=== PATIENT | male | born 1970 | race Two or more races ===

== ENCOUNTER → 2018-01-17 | Outpatient (CLI) | payer OTHER ==
[2018-01-17 08:08] LABS: Basophils # (auto) 0.1 uL; Basophils % (auto) 0.5 % (0.0-2.0); Eosinophils # (auto) 0.2 uL; Eosinophils % (auto) 2.2 % (0.0-7.0); Hematocrit 48.3 % (41.0-53.0); Hemoglobin 16.5 g/dL (13.5-17.5); Lymphocytes # (auto) 2.7 uL; Lymphocytes % (auto) 26.2 % (10.0-50.0); Mean Corpuscular Hemoglobin 30.5 pg (28.0-32.0); Mean Corpuscular Hgb Conc. 34.1 g/dL (32.0-36.0); Mean Corpuscular Volume 89.6 fL (80.0-100.0); Monocytes # (auto) 0.8 uL; Monocytes % (auto) 7.7 % (0.0-12.0); Neutrophils # (auto) 6.6 uL; Neutrophils % (auto) 63.4 % (37.0-80.0); Nucleated Red Blood Cells % 0.1 %; Platelet Count (auto) 214 10^3/uL (140-450); Red Cell Distribution Width 14.3 % (11.8-14.3); White Blood Cell 10.4 10^3/uL (4.4-10.8)
[2018-01-17 08:18] LABS: Urine Bacteria FEW /hpf (None Seen); Urine Blood 2+ /uL (Negative); Urine Mucus FEW (None Seen); Urine Specific Gravity 1.027 (1.001-1.035); Urine WBC 5 /hpf (0 - 3)
[2018-01-17 08:19] LABS: INR 0.98 (0.9-1.15); Partial Thromboplastin Time 31.4 sec (23.78-33.04); Prothrombin Time 10.5 sec (9.27-12.13)
[2018-01-17 08:43] LABS: Albumin 3.8 g/dL (3.4-5.0); BUN/Creatinine Ratio 16.2; Bilirubin, Total 0.3 mg/dL (0.2-1.0); Calcium 9.2 mg/dL (8.5-10.1); Potassium 4.6 mmol/L (3.5-5.1); Total Protein 7.3 g/dL (6.4-8.2)
== END | disposition home or self-care (01) ==
LOC: LAB 07:29
PROVIDERS: ATTEND Nurse Practitioner
DX: E78.5 Hyperlipidemia, unspecified (principal)
CPT/HCPCS: 36415; 80053; 80061; 81001; 82306; 83036; 84443; 85025; 85610; 85730

== ENCOUNTER → 2018-04-03 | Day surgery (SDC) | payer OTHER ==
[2018-04-01 14:08] LABS: Basophils # (auto) 0 uL; Basophils % (auto) 0.4 % (0.0-2.0); Eosinophils # (auto) 0.1 uL; Eosinophils % (auto) 0.5 % (0.0-7.0); Hemoglobin 16.1 g/dL (13.5-17.5); Lymphocytes # (auto) 2.4 uL; Lymphocytes % (auto) 17.8 % (10.0-50.0); Mean Corpuscular Hemoglobin 30.2 pg (28.0-32.0); Mean Corpuscular Hgb Conc. 33.6 g/dL (32.0-36.0); Monocytes # (auto) 0.7 uL; Monocytes % (auto) 5.2 % (0.0-12.0); Neutrophils # (auto) 10.3 uL; Neutrophils % (auto) 76.1 % (37.0-80.0); Nucleated Red Blood Cells % 0.1 %; Platelet Count (auto) 227 10^3/uL (140-450); Red Blood Cells 5.33 10^6/uL (4.5-5.90); Red Cell Distribution Width 13.9 % (11.8-14.3); White Blood Cell 13.6 10^3/uL (4.4-10.8)
[2018-04-01 14:15] LABS: Prothrombin Time 10.7 sec (9.27-12.13)
[2018-04-01 14:29] LABS: BUN/Creatinine Ratio 9.3; Bilirubin, Total 0.4 mg/dL (0.2-1.0); Total Protein 7.7 g/dL (6.4-8.2)
[2018-04-01 15:25] LABS: Urine Bacteria NONE SEEN /hpf (None Seen); Urine Blood TRACE /uL (Negative); Urine Specific Gravity 1.002 (1.001-1.035); Urine WBC <1 /hpf (0 - 3)
[~2018-04-03] VITALS: Ht 175.3 cm; Wt 73.9 kg
[~2018-04-03] MED LIST: GLYCOPYRROLATE 0.2 MG/ML 1ML VIAL IV ONE; LEVOFLOXACIN 500MG 100 ML IV ONE; LIDOCAINE 1% HCL (LOCAL ANESTH.) INJ 20ML MDV ONE; MIDAZOLAM HCL 1MG/1ML-2 ML VIAL ONE; MORPHINE SULFATE 4 MG/ML SYR/VIAL IV ONE; NEOSTIGMINE 1 MG/ML INJ (10mg/10ML VIAL) IV ONE; ONDANSETRON HCL 4 MG/2 ML VIAL IV ONE; PROPOFOL 10 MG/ML 20 ML IV ONE; ROCURONIUM 10MG/ML 10ML VIAL IV ONE; ePHEDrine SULFATE 50 MG/ML AMP IV PRN; fentaNYL CITRATE 100 MCG/2 ML VL ONE; hydrALAZINE HCL 20 MG/ML VL IV PRN
[2018-04-03 14:43] VITALS: BP 123/71
== END | disposition home or self-care (01) ==
LOC: SUR 10:06
PROVIDERS: ATTEND Surgery
DX: D17.1 Benign lipomatous neoplasm of skin and subcutaneous tissue of trunk (principal); Z88.0 Allergy status to penicillin; Z98.890 Other specified postprocedural states
CPT/HCPCS: 21555; 36415; 80053; 81001; 85025; 85610; 85730; 88305; J1956; J2001; J2250; J2704; J3010

== ENCOUNTER 2018-07-25 10:57 | Emergency (ER) | payer OTHER ==
[~2018-07-25] VITALS: Ht 175.3 cm; Wt 74.8 kg
[2018-07-25 11:03] VITALS: BP 135/84
== END 2018-07-25 12:50 | disposition home or self-care (01) ==
LOC: ER 11:02
DX: F41.9 Anxiety disorder, unspecified (principal); R06.02 Shortness of breath; Z53.21 Procedure and treatment not carried out due to patient leaving prior to being seen by health care provider

== ENCOUNTER → 2019-01-31 | Outpatient (CLI) | payer OTHER ==
[2019-01-31 07:46] LABS: Urine Bacteria NONE SEEN /hpf (None Seen); Urine Blood TRACE /uL (Negative); Urine Specific Gravity 1.012 (1.001-1.035); Urine WBC 1 /hpf (0 - 3)
[2019-01-31 07:47] LABS: Basophils # (auto) 0.1 uL; Basophils % (auto) 0.5 % (0.0-2.0); Eosinophils # (auto) 0.3 uL; Hematocrit 47.3 % (41.0-53.0); Hemoglobin 15.8 g/dL (13.5-17.5); Lymphocytes # (auto) 2.8 uL; Lymphocytes % (auto) 26.8 % (10.0-50.0); Mean Corpuscular Hemoglobin 29.9 pg (28.0-32.0); Mean Corpuscular Hgb Conc. 33.4 g/dL (32.0-36.0); Mean Corpuscular Volume 89.6 fL (80.0-100.0); Monocytes # (auto) 0.7 uL; Monocytes % (auto) 7.1 % (0.0-12.0); Neutrophils # (auto) 6.4 uL; Neutrophils % (auto) 62.6 % (37.0-80.0); Nucleated Red Blood Cells % 0.1 %; Platelet Count (auto) 202 10^3/uL (140-450); Red Blood Cells 5.28 10^6/uL (4.5-5.90); Red Cell Distribution Width 14.3 % (11.8-14.3); White Blood Cell 10.3 10^3/uL (4.4-10.8)
[2019-01-31 08:13] LABS: Albumin 3.5 g/dL (3.4-5.0); Calcium 8.3 mg/dL (8.5-10.1); Potassium 4.1 mmol/L (3.5-5.1)
[2019-01-31 08:17] LABS: Bilirubin, Total 0.2 mg/dL (0.2-1.0); Total Protein 6.8 g/dL (6.4-8.2)
== END | disposition home or self-care (01) ==
LOC: LAB 07:03
PROVIDERS: ATTEND Nurse Practitioner
DX: E78.5 Hyperlipidemia, unspecified (principal)
CPT/HCPCS: 36415; 80053; 80061; 81001; 84443; 85025

== ENCOUNTER 2020-07-23 11:28 | Day surgery (SDC) | payer OTHER ==
[2020-07-21 14:07] LABS: Basophils # (auto) 0.1 10 ^3/uL (0-0.2); Basophils % (auto) 0.5 % (0.0-2.0); Eosinophils # (auto) 0.1 10 ^3/uL (0-0.8); Hematocrit 44.4 % (41.0-53.0); Hemoglobin 15.2 g/dL (13.5-17.5); Lymphocytes # (auto) 3.2 10 ^3/uL (0.4-5.4); Lymphocytes % (auto) 23.7 % (10.0-50.0); Mean Corpuscular Hemoglobin 31.2 pg (28.0-32.0); Mean Corpuscular Hgb Conc. 34.3 g/dL (32.0-36.0); Mean Corpuscular Volume 90.8 fL (80.0-100.0); Monocytes # (auto) 0.8 10 ^3/uL (0-1.3); Monocytes % (auto) 5.9 % (0.0-12.0); Neutrophils # (auto) 9.3 10 ^3/uL (1.6-8.6); Neutrophils % (auto) 68.9 % (37.0-80.0); Red Blood Cells 4.89 10^6/uL (4.5-5.90); Red Cell Distribution Width 13.8 % (11.8-14.3); White Blood Cell 13.4 10^3/uL (4.4-10.8)
[2020-07-21 14:35] LABS: INR 1.03 (0.9-1.15); Partial Thromboplastin Time 32.9 sec (23.0-31.2)
[~2020-07-23] VITALS: Ht 175.3 cm; Wt 74.8 kg
[~2020-07-23 11:28] MED LIST changes: +ALPR0.5T PO; +BUSP10TA31 PO; +CITA20TA9 PO; -GLYCOPYRROLATE 0.2 MG/ML 1ML VIAL IV ONE; -LEVOFLOXACIN 500MG 100 ML IV ONE; -LIDOCAINE 1% HCL (LOCAL ANESTH.) INJ 20ML MDV ONE; -MIDAZOLAM HCL 1MG/1ML-2 ML VIAL ONE; -MORPHINE SULFATE 4 MG/ML SYR/VIAL IV ONE; -NEOSTIGMINE 1 MG/ML INJ (10mg/10ML VIAL) IV ONE; -ONDANSETRON HCL 4 MG/2 ML VIAL IV ONE; -PROPOFOL 10 MG/ML 20 ML IV ONE; -ROCURONIUM 10MG/ML 10ML VIAL IV ONE; -ePHEDrine SULFATE 50 MG/ML AMP IV PRN; -fentaNYL CITRATE 100 MCG/2 ML VL ONE; -hydrALAZINE HCL 20 MG/ML VL IV PRN
[2020-07-23] MEDS ORDERED: fentaNYL CITRATE 100 MCG/2 ML VL ONE (12:08)
[2020-07-23] MEDS ORDERED: diphenhdrAMINE HCL 50 MG/1 ML VL ONE (12:08)
[2020-07-23] MEDS ORDERED: MIDAZOLAM HCL 5 MG/ML-1ML VIAL ONE (12:08)
[2020-07-23] MEDS ORDERED: diphenhdrAMINE HCL 50 MG/1 ML VL IV ONE ×2 (13:42→13:45)
[2020-07-23] MEDS ORDERED: MIDAZOLAM HCL 5 MG/ML-1ML VIAL IV ONE ×2 (13:42→13:45)
[2020-07-23] MEDS ORDERED: fentaNYL CITRATE 100 MCG/2 ML VL IV ONE ×2 (13:42→13:45)
[2020-07-23 14:15] VITALS: BP 103/59
== END 2020-07-23 14:50 | disposition home or self-care (01) ==
LOC: GI 11:28
PROVIDERS: ATTEND Internal Medicine Gastroenterology
DX: R10.32 Left lower quadrant pain (principal); K63.5 Polyp of colon; K64.8 Other hemorrhoids; Z20.822 Contact with and (suspected) exposure to COVID-19; Z88.0 Allergy status to penicillin; Z98.890 Other specified postprocedural states; Z79.899 Other long term (current) drug therapy; Z90.49 Acquired absence of other specified parts of digestive tract
CPT/HCPCS: 36415; 45385; 85025; 85610; 85730; J1200; J2250; J3010; J7030; U0003; 99152

== ENCOUNTER → 2023-12-28 | Outpatient (CLI) | payer OTHER ==
[2023-12-28 07:28] LABS: Urine Bacteria None Seen /hpf (None Seen)
[2023-12-28 07:31] LABS: Basophils # (auto) 0.1 10 ^3/uL (0-0.2); Basophils % (auto) 0.8 % (0.0-2.0); Eosinophils # (auto) 0.2 10 ^3/uL (0-0.8); Eosinophils % (auto) 1.5 % (0.0-7.0); Hematocrit 44.5 % (41.0-53.0); Hemoglobin 15.1 g/dL (13.5-17.5); Lymphocytes # (auto) 3.3 10 ^3/uL (0.4-5.4); Lymphocytes % (auto) 22.6 % (10.0-50.0); Mean Corpuscular Hemoglobin 30.4 pg (28.0-32.0); Mean Corpuscular Hgb Conc. 33.9 g/dL (32.0-36.0); Mean Corpuscular Volume 89.7 fL (80.0-100.0); Monocytes # (auto) 1.1 10 ^3/uL (0-1.3); Monocytes % (auto) 7.8 % (0.0-12.0); Neutrophils # (auto) 9.8 10 ^3/uL (1.6-8.6); Neutrophils % (auto) 67.3 % (37.0-80.0); Nucleated Red Blood Cells % 0.1 %; Red Blood Cells 4.97 10^6/uL (4.5-5.90); White Blood Cell 14.6 10^3/uL (4.4-10.8)
[2023-12-28 07:51] LABS: Urine Blood 2+ /uL (Negative); Urine Clarity Clear (Clear); Urine Color Yellow (Yellow); Urine Mucus FEW (None Seen); Urine Protein, UAD TRACE (Negative); Urine Specific Gravity 1.032 (1.001-1.035); Urine Urobilinogen 2 mg/dL (Negative); Urine WBC 2 /hpf (0 - 3)
[2023-12-28 08:28] LABS: Chloride 109 mmol/L (98-107); Potassium 3.8 mmol/L (3.5-5.1); Sodium 140 mmol/L (136-145)
[2023-12-28 08:34] LABS: Blood Urea Nitrogen 14 mg/dL (9-23); Triglycerides 109 mg/dL (< 150)
[2023-12-28 09:24] LABS: Anion Gap 6 (5-15); Carbon Dioxide 25 mmol/L (20-30)
[2023-12-28 09:25] LABS: Calcium 9.1 mg/dL (8.7-10.4)
[2023-12-28 09:29] LABS: BUN/Creatinine Ratio 12.5 (10.0-20.0); Glucose 89 mg/dL (74-106)
[2023-12-28 09:30] LABS: Alkaline Phosphatase 63 U/L (46-116); LDL Cholesterol 115 mg/dL (< 100)
[2023-12-28 09:31] LABS: Alanine Aminotransferase 12 U/L (7-40); Albumin 3.9 g/dL (3.2-4.8); Aspartate Aminotransferase 11 U/L (13-40)
[2023-12-28 09:32] LABS: Bilirubin, Total 0.5 mg/dL (0.2-1.0); Cholesterol 165 mg/dL (< 200); HDL Cholesterol 44 mg/dL (40-59); Total Protein 6.2 g/dL (5.7-8.2)
== END | disposition home or self-care (01) ==
LOC: LAB 07:13
PROVIDERS: ATTEND Nurse Practitioner
DX: I10 Essential (primary) hypertension (principal); E78.5 Hyperlipidemia, unspecified
CPT/HCPCS: 36415; 80053; 80061; 81001; 83036; 84443; 85025

== ENCOUNTER → 2023-12-28 | Outpatient (CLI) | payer OTHER | END | disposition home or self-care (01) | LOC: LAB 12:11 | PROVIDERS: ATTEND Family Medicine | DX: D48.5 Neoplasm of uncertain behavior of skin (principal) ==

== ENCOUNTER 2024-03-12 07:57 | Day surgery (SDC) | payer OTHER ==
[2024-03-07 15:02] LABS: Urine Bacteria None Seen /hpf (None Seen)
[2024-03-07 15:06] LABS: Urine Blood 1+ /uL (Negative); Urine Clarity Clear (Clear); Urine Color Light-Yellow (Yellow); Urine Protein, UAD Negative (Negative); Urine Specific Gravity 1.006 (1.001-1.035); Urine Urobilinogen Normal (Negative); Urine WBC 1 /hpf (0 - 3); Urine pH 5.5 (5.0-9.0)
[2024-03-07 15:18] LABS: Basophils # (auto) 0.1 10 ^3/uL (0-0.2); Basophils % (auto) 0.5 % (0.0-2.0); Eosinophils # (auto) 0.1 10 ^3/uL (0-0.8); Eosinophils % (auto) 0.8 % (0.0-7.0); Hematocrit 47.3 % (41.0-53.0); Hemoglobin 16.4 g/dL (13.5-17.5); Lymphocytes # (auto) 3.3 10 ^3/uL (0.4-5.4); Lymphocytes % (auto) 26.9 % (10.0-50.0); Mean Corpuscular Hemoglobin 30.7 pg (28.0-32.0); Mean Corpuscular Hgb Conc. 34.6 g/dL (32.0-36.0); Mean Corpuscular Volume 88.7 fL (80.0-100.0); Monocytes % (auto) 7.8 % (0.0-12.0); Neutrophils # (auto) 7.9 10 ^3/uL (1.6-8.6); Nucleated Red Blood Cells % 0.1 %; Platelet Count (auto) 238 10^3/uL (140-450); Red Blood Cells 5.34 10^6/uL (4.5-5.90); Red Cell Distribution Width 14.1 % (11.8-14.3); White Blood Cell 12.3 10^3/uL (4.4-10.8)
[2024-03-07 15:27] LABS: INR 1.13 (0.9-1.15); Partial Thromboplastin Time 34.4 SEC (24.5-34.5); Prothrombin Time 11.9 sec (9.3-11.8)
[2024-03-07 15:31] LABS: Alanine Aminotransferase 14 U/L (7-40); Albumin 4.6 g/dL (3.2-4.8); Alkaline Phosphatase 83 U/L (46-116); Anion Gap 7 (5-15); Aspartate Aminotransferase 18 U/L (13-40); BUN/Creatinine Ratio 9.6 (10.0-20.0); Blood Urea Nitrogen 12 mg/dL (9-23); Calcium 9.9 mg/dL (8.7-10.4); Carbon Dioxide 24 mmol/L (20-31); Chloride 105 mmol/L (98-107); Glucose 87 mg/dL (74-106); Potassium 4.1 mmol/L (3.5-5.1); Sodium 136 mmol/L (136-145)
[2024-03-07 15:32] LABS: Bilirubin, Total 0.7 mg/dL (0.2-1.0); Total Protein 7.3 g/dL (5.7-8.2)
[~2024-03-12] VITALS: Ht 175.3 cm; Wt 74.8 kg
[~2024-03-12 07:57] MED LIST changes: -BUSP10TA31 PO
[2024-03-12] MEDS ORDERED: levoFLOXacin 500MG 100 ML IV ONE (10:59)
[2024-03-12] MEDS ORDERED: LIDOCAINE 2% (LOCAL ANESTH.) PF 5ml SDV ONE (11:13)
[2024-03-12] MEDS ORDERED: ONDANSETRON HCL 4 MG/2 ML VIAL ONE (11:13)
[2024-03-12] MEDS ORDERED: GLYCOPYRROLATE 0.2 MG/ML 1ML VIAL ONE (11:13)
[2024-03-12] MEDS ORDERED: DexAMETHasone SOD PHOS 10MG/1ML VIAL INJ ONE (11:13)
[2024-03-12] MEDS ORDERED: PROPOFOL 10 MG/ML 20 ML IV ONE ×4 (11:13→12:22)
[2024-03-12] MEDS ORDERED: KETOROLAC TROMETH 30 MG/ML 1ML VIAL ONE (11:13)
[2024-03-12] MEDS ORDERED: KETAMINE 50mg/ML 1ml syringe ONE (11:14)
[2024-03-12] MEDS: BUPIVACAINE 0.25% INJ 50ML VIAL ONE (11:37)
[2024-03-12 12:30] VITALS: PULSE 74; RESP 14; TEMP 98.3; O2SAT 98
[2024-03-12] MEDS ORDERED: NALOXONE HCL 0.4 MG/ML VIAL IV PRN (12:45)
[2024-03-12] MEDS ORDERED: HYDROmorphone HCL 2 MG/ML VL/or syr IV PRN (12:45)
[2024-03-12] MEDS ORDERED: FLUMAZENIL 0.1 MG/ML INJ 10ML MDV IV PRN (12:45)
[2024-03-12] MEDS ORDERED: hydrALAZINE HCL 20 MG/ML VL IV PRN (12:45)
[2024-03-12] MEDS ORDERED: ePHEDrine SULFATE 50 MG/ML AMP IV PRN (12:45)
[2024-03-12] MEDS ORDERED: ONDANSETRON HCL 4 MG/2 ML VIAL IV PRN (12:45)
[2024-03-12] MEDS: fentaNYL CITRATE 100 MCG/2 ML VL IV PRN (12:57)
[2024-03-12] MEDS ORDERED: fentaNYL CITRATE 100 MCG/2 ML VL ONE (12:59)
[2024-03-12] MEDS: oxyCODONE HCL 5MG TAB PO PRN (13:37)
[2024-03-12 13:45] VITALS: BP 118/61; PULSE 58; RESP 18; O2SAT 99
--- NOTE | 2024-03-12 15:06 | DVHOP ---
DATE OF SURGERY: 03/12/2024 PREOPERATIVE DIAGNOSIS: Melanoma, right medial malleolus skin. POSTOPERATIVE DIAGNOSIS: Melanoma, right medial malleolus skin. SURGEON: Helder Snider MD PERSONAL ATTENDANT: None. ANESTHESIA: Local with IV sedation. ANESTHESIOLOGIST: Dr. Reji Craft. PROCEDURE: Wide excision and sentinel lymph node biopsy, right groin. DESCRIPTION OF PROCEDURE: The patient was brought to nuclear medicine at 8 o'clock this morning injected with radionucleide and brought to the operating room after several hours. His leg and groin were prepped and draped and proposed skin incisions infiltrated with 0.25% Marcaine with epinephrine. Subsequently, an incision around the preexisting scar on the medial malleolus skin was accomplished approximately 1 cm margins around the scar were accomplished. Hemostasis was obtained with electrocautery and digital pressure following which, the wound was irrigated, irrigant was aspirated and closure accomplished utilizing Prolene mattress sutures through and through full thickness of the skin. The specimen skin was submitted for histopathologic examination. It was marked with a long suture at the edge of the specimen facing outward and the short suture facing cephalad superiorly. Subsequently, the Neoprobe was used to detect radioactivity. There was no detectable signal from the popliteal area. There were no palpable masses in the popliteal area and several attempts at detecting radioactivity in the popliteal fossa did not reveal any radioactive signal in the popliteal area. In the groin, there was radioactivity detected. Incision was made over the area of the radioactivity and lymph nodes are in the area of maximum radioactive counts. Two lymph nodes were removed with blood vessels were controlled with Hemoclips. The wound was irrigated. Hemostasis was accomplished. The lymph nodes were submitted separately from the skin for histopathologic examination. The wound was then approximated using 2-0 Monocryl suture, Dermabond glue, and Steri-Strips. The patient remained stable throughout the procedure, left the operating room following an accurate needle and sponge count. His , Gogo Rankin was thoroughly informed by phone at [phone]. Helder Snider MD PF TID: [id number] RECEIPT: [id number]
== END 2024-03-12 13:55 | disposition home or self-care (01) ==
LOC: SUR 07:57
PROVIDERS: ATTEND Surgery
DX: C77.4 Secondary and unspecified malignant neoplasm of inguinal and lower limb lymph nodes (principal); C43.71 Malignant melanoma of right lower limb, including hip; Z88.0 Allergy status to penicillin; Z88.1 Allergy status to other antibiotic agents; F17.210 Nicotine dependence, cigarettes, uncomplicated; Z98.890 Other specified postprocedural states; Z90.49 Acquired absence of other specified parts of digestive tract
CPT/HCPCS: 11403; 36415; 38531; 78195; 80053; 81001; 85025; 85610; 85730; 88305; 88342; A9541; J1100; J1885; J1956; J2003; J2405; J2704; J3010; J3490

== ENCOUNTER → 2024-06-18 | Outpatient (CLI) | payer OTHER ==
[2024-06-18 06:53] LABS: Basophils # (auto) 0.1 10 ^3/uL (0-0.2); Basophils % (auto) 0.5 % (0.0-2.0); Eosinophils # (auto) 0.1 10 ^3/uL (0-0.8); Eosinophils % (auto) 0.8 % (0.0-7.0); Hematocrit 46.2 % (41.0-53.0); Hemoglobin 15.6 g/dL (13.5-17.5); Lymphocytes # (auto) 3.1 10 ^3/uL (0.4-5.4); Lymphocytes % (auto) 29.6 % (10.0-50.0); Mean Corpuscular Hemoglobin 30.1 pg (28.0-32.0); Mean Corpuscular Hgb Conc. 33.7 g/dL (32.0-36.0); Mean Corpuscular Volume 89.4 fL (80.0-100.0); Monocytes # (auto) 0.7 10 ^3/uL (0-1.3); Monocytes % (auto) 7.3 % (0.0-12.0); Neutrophils # (auto) 6.4 10 ^3/uL (1.6-8.6); Neutrophils % (auto) 61.8 % (37.0-80.0); Nucleated Red Blood Cells % 0.1 %; Platelet Count (auto) 181 10^3/uL (140-450); Red Blood Cells 5.17 10^6/uL (4.5-5.90); Red Cell Distribution Width 14.1 % (11.8-14.3); White Blood Cell 10.3 10^3/uL (4.4-10.8)
[2024-06-18 07:26] LABS: Alanine Aminotransferase 19 U/L (7-40); Alkaline Phosphatase 65 U/L (46-116); Anion Gap 4 (5-15); Aspartate Aminotransferase 14 U/L (13-40); BUN/Creatinine Ratio 11.9 (10.0-20.0); Blood Urea Nitrogen 15 mg/dL (9-23); Calcium 9.6 mg/dL (8.7-10.4); Carbon Dioxide 27 mmol/L (20-31); Chloride 109 mmol/L (98-107); Glucose 103 mg/dL (74-106); Potassium 5.3 mmol/L (3.5-5.1); Sodium 140 mmol/L (136-145)
[2024-06-18 07:27] LABS: Bilirubin, Total 0.3 mg/dL (0.2-1.0); Total Protein 6.4 g/dL (5.7-8.2)
== END | disposition home or self-care (01) ==
LOC: LAB 06:33
PROVIDERS: ATTEND Student in an Organized Health Care Education/Training Program
DX: C43.9 Malignant melanoma of skin, unspecified (principal)
CPT/HCPCS: 36415; 80053; 85025

== ENCOUNTER → 2024-08-06 | Outpatient (CLI) | payer OTHER ==
--- NOTE | 2024-08-06 10:09 | DVH ---
US US GUIDANCE FOR NEEDLE PLACEME, HISTORY: RIGHT GROIN LYMPH NODES PROCEDURE: An informed consent was obtained. Limited localization ultrasound of the right inguinal ly mph node was obtained. The right groin was prepped with chlorhexidine which was allowed to dry and dr aped in the usual sterile fashion. Timeout was performed. The skin and soft tissues were infiltrated with 1% Xylocaine. With ultrasound guidance, 3 core biopsies were taken with the 17/18 gauge Voice[employer] device. The groin was cleaned and a sterile band-aid applied. The specimens were sent to [facility] for analysis. No immediate complication was identified. FINDINGS: Core biopsy of the right inguinal lymph node with samples placed in formalin and RPMI. IMPRESSION: Ultrasound Core biopsy of the right inguinal lymph node with samples placed in formalin and RPMI.
== END | disposition home or self-care (01) ==
LOC: US 08:26
PROVIDERS: ATTEND Nurse Practitioner
DX: C43.9 Malignant melanoma of skin, unspecified (principal); F17.210 Nicotine dependence, cigarettes, uncomplicated; Z88.0 Allergy status to penicillin; Z88.8 Allergy status to other drugs, medicaments and biological substances
CPT/HCPCS: 38505; 76881; 76942

== ENCOUNTER 2024-11-26 06:05 | Outpatient (CLI) | payer OTHER ==
[2024-11-26 06:18] LABS: Urine Bacteria None Seen /hpf (None Seen)
[2024-11-26 06:35] LABS: Basophils # (auto) 0.1 10 ^3/uL (0-0.2); Basophils % (auto) 0.6 % (0.0-2.0); Eosinophils # (auto) 0.2 10 ^3/uL (0-0.8); Eosinophils % (auto) 1.4 % (0.0-7.0); Hematocrit 47.6 % (41.0-53.0); Hemoglobin 16.4 g/dL (13.5-17.5); Lymphocytes # (auto) 2.7 10 ^3/uL (0.4-5.4); Lymphocytes % (auto) 22.4 % (10.0-50.0); Mean Corpuscular Hemoglobin 30.6 pg (28.0-32.0); Mean Corpuscular Hgb Conc. 34.5 g/dL (32.0-36.0); Mean Corpuscular Volume 88.7 fL (80.0-100.0); Monocytes # (auto) 0.8 10 ^3/uL (0-1.3); Monocytes % (auto) 6.5 % (0.0-12.0); Neutrophils # (auto) 8.3 10 ^3/uL (1.6-8.6); Neutrophils % (auto) 69.1 % (37.0-80.0); Platelet Count (auto) 196 10^3/uL (140-450); Red Blood Cells 5.36 10^6/uL (4.5-5.90); Red Cell Distribution Width 14.1 % (11.8-14.3)
[2024-11-26 06:36] LABS: Urine Blood 1+ /uL (Negative); Urine Clarity Clear (Clear); Urine Color Yellow (Yellow); Urine Protein, UAD Negative (Negative); Urine Specific Gravity 1.027 (1.001-1.035); Urine Squamous Epithelial Cell None Seen /hpf (<5); Urine Urobilinogen Normal (Negative); Urine WBC 1 /HPF (0-3); Urine pH 5.5 (5.0-9.0)
[2024-11-26 07:11] LABS: Alanine Aminotransferase 16 U/L (7-40); Albumin 4.4 g/dL (3.2-4.8); Alkaline Phosphatase 68 U/L (46-116); Anion Gap 6 (5-15); Aspartate Aminotransferase 18 U/L (<34); Bilirubin, Total 0.3 mg/dL (0.2-1.0); Blood Urea Nitrogen 19 mg/dL (9-23); Calcium 9.4 mg/dL (8.7-10.4); Carbon Dioxide 28 mmol/L (20-31); Chloride 105 mmol/L (98-107); Glucose 104 mg/dL (74-106); Potassium 5.1 mmol/L (3.5-5.1); Sodium 139 mmol/L (136-145); Total Protein 6.9 g/dL (5.7-8.2)
[2024-11-26 07:25] LABS: Cholesterol 186 mg/dL (< 200); HDL Cholesterol 43 mg/dL (40-59); LDL Cholesterol 129 mg/dL (< 100); Triglycerides 151 mg/dL (< 150)
[2024-11-27 07:07] LABS: PSA Free 0.4 ng/mL; Prostate Specific Antigen 5.2 ng/mL (0.0-4.0)
== END 2024-11-26 17:00 | disposition home or self-care (01) ==
LOC: LAB 06:05
PROVIDERS: ATTEND Nurse Practitioner
DX: I10 Essential (primary) hypertension (principal); E78.5 Hyperlipidemia, unspecified
CPT/HCPCS: 36415; 80053; 80061; 81001; 83036; 84153; 84154; 84443; 85025

== ENCOUNTER → 2025-01-02 | Outpatient (CLI) | payer OTHER ==
[2025-01-02 07:40] LABS: Triglycerides 110 mg/dL (< 150)
[2025-01-02 07:42] LABS: HDL Cholesterol 42 mg/dL (40-59)
[2025-01-02 07:43] LABS: Cholesterol 187 mg/dL (< 200)
[2025-01-03 08:07] LABS: Prostate Specific Antigen 5.8 ng/mL (0.0-4.0)
== END | disposition home or self-care (01) ==
LOC: LAB 06:05
PROVIDERS: ATTEND Nurse Practitioner
DX: R97.20 Elevated prostate specific antigen [PSA] (principal); E78.5 Hyperlipidemia, unspecified
CPT/HCPCS: 36415; 80061; 84153; 84154

== ENCOUNTER 2025-02-12 06:16 | Outpatient (CLI) | payer OTHER ==
[2025-02-12 06:49] LABS: Hematocrit 47.1 % (41.0-53.0); Hemoglobin 16.5 g/dL (13.5-17.5); Mean Corpuscular Hemoglobin 31.4 pg (28.0-32.0); Mean Corpuscular Volume 89.7 fL (80.0-100.0); Nucleated Red Blood Cells % 0.1 %
[2025-02-12 07:37] LABS: Alanine Aminotransferase 14 U/L (7-40); Albumin 4.4 g/dL (3.2-4.8); Alkaline Phosphatase 70 U/L (46-116); Anion Gap 7 (5-15); BUN/Creatinine Ratio 13.6 (10.0-20.0); Bilirubin, Total 0.4 mg/dL (0.2-1.0); Blood Urea Nitrogen 17 mg/dL (9-23); Calcium 9.6 mg/dL (8.7-10.4); Carbon Dioxide 27 mmol/L (20-31); Chloride 106 mmol/L (98-107); Glucose 101 mg/dL (74-106); Sodium 140 mmol/L (136-145); Total Protein 7.1 g/dL (5.7-8.2)
[2025-02-12 07:41] LABS: Potassium 5.2 mmol/L (3.5-5.1)
== END 2025-02-12 17:00 | disposition home or self-care (01) ==
LOC: LAB 06:16
PROVIDERS: ATTEND Student in an Organized Health Care Education/Training Program
DX: C43.9 Malignant melanoma of skin, unspecified (principal)
CPT/HCPCS: 36415; 80053; 85025

== ENCOUNTER 2025-04-28 08:01 | Day surgery (SDC) | payer OTHER ==
[2025-04-24 14:15] LABS: Hematocrit 47.3 % (41.0-53.0); Hemoglobin 16.0 g/dL (13.5-17.5); Mean Corpuscular Hemoglobin 30.2 pg (28.0-32.0); Mean Corpuscular Volume 88.9 fL (80.0-100.0); Nucleated Red Blood Cells % 0.1 %
[2025-04-24 14:30] LABS: INR 1.03 (0.9-1.15); Partial Thromboplastin Time 32.2 SEC (24.5-34.5); Prothrombin Time 10.9 sec (9.3-11.8)
[2025-04-24 14:31] LABS: Urine Protein, UAD 1+ (Negative)
[2025-04-24 15:15] LABS: Alanine Aminotransferase 22 U/L (7-40); Albumin 4.6 g/dL (3.2-4.8); Alkaline Phosphatase 81 U/L (46-116); Anion Gap 6 (5-15); BUN/Creatinine Ratio 15.2 (10.0-20.0); Blood Urea Nitrogen 22 mg/dL (9-23); Calcium 9.9 mg/dL (8.7-10.4); Carbon Dioxide 30 mmol/L (20-31); Chloride 103 mmol/L (98-107); Glucose 92 mg/dL (74-106); Potassium 4.5 mmol/L (3.5-5.1); Sodium 139 mmol/L (136-145); Total Protein 7.5 g/dL (5.7-8.2)
[2025-04-24 15:16] LABS: Bilirubin, Total 0.4 mg/dL (0.2-1.0)
[~2025-04-28] VITALS: Ht 175.3 cm; Wt 76.2 kg
[~2025-04-28 08:01] MED LIST changes: +BUPR-133 PO
[2025-04-28] MEDS ORDERED: CIPROFLOXACIN 400MG/200ML 200 ML IV ONE (08:25)
[2025-04-28] MEDS ORDERED: fentaNYL CITRATE 100 MCG/2 ML VL ONE (08:56)
[2025-04-28] MEDS ORDERED: MIDAZOLAM HCL 2MG/2ML 2ml VIAL (1mg/ml) ONE (08:56)
[2025-04-28] MEDS ORDERED: PROPOFOL 10 MG/ML 20 ML IV ONE (08:57)
[2025-04-28 09:15] VITALS: TEMP 97.8
--- NOTE | 2025-04-28 09:25 | DVHNC2 ---
Procedure - OPERATIVE REPORT Pre-op. Diagnosis: PI-RADS 3 - Intermediate (the presence of clinically significant cancer is equivocal) 1.1 cm lesion in the right posterolateral peripheral zone mid gland. No evidence of extraprostatic extension or pelvic lymphadenopathy. Elevated PSA- 5.55 4K Score 34% Post-op. Diagnosis: Same as pre-op diagnosis Operation: Prostate Biopsyl, saturation extended pattern - CPT 24874 Transrectal ultrasound - CPT 47075 Anesthesia: MAC Indications: Patient has a history of rising PSA. Patient had been prepped with fleet enema, was started on antibiotics and had abstained from blood thinners for at least 7 days. Complication including but not limited to infection, bleeding into urethra, bladder, rectum, ejaculate, as well as urinary retention were discussed, informed consent was obtained. Details of Procedure: Patient was placed in the position. A trans-rectal ultrasound was inserted, prostate was measured at 34 grams. Next, extended twelve core biopsies were obtained thru a transrectall technique and under real-time ultrasound. Patient tolerated the procedure well and was transferred to the recovery in satisfactory condition. Specimens: 12 Cores GABE NICOLAS MD Apr 28, 2025 09:25
--- NOTE | 2025-04-28 09:26 | DVHDS2 ---
New Physician D'charge PN Admitting Diagnosis Admitting Diagnosis Elevated PSA Discharge Diagnosis Same Operations or Procedures Transrectal ultrasound-guided prostate biopsy Reason(s) For Hospitalization Surgery Treatment Plan Discharge Condition of Discharge Fair Disposition Home Discharge Instructions Diet: Regular Activity: Light activity Activity comment: As tolerated Medications: Patient to continue ciprofloxacin 500 mg p.o. b.i.d. for three days Follow Up Care Discharge Statement: "Patient was advised to return to the ER or call 911 if any headaches, dizziness, shortness of breath, chest pain, abdominal pain, bleeding, fevers, or worsening of medical condition. Patient was counseled about treatment plan, medications, possible side effects, patientverbalized understanding. All questions were answered to the best of my ability. This discharge took greater then 30 minutes in planning, reviewing documentation, counseling the patient, and discussing with other team members." GABE NICOLAS MD Apr 28, 2025 09:26
[2025-04-28 09:49] VITALS: BP 106/69; PULSE 68; RESP 14; O2SAT 100
[2025-04-30] MEDS ORDERED: MIDAZOLAM HCL 2MG/2ML 2ml VIAL (1mg/ml) ONE (07:13)
[2025-04-30] MEDS ORDERED: fentaNYL CITRATE 100 MCG/2 ML VL ONE (07:13)
[2025-04-30] MEDS ORDERED: MORPHINE SULF PF 5 MG/10 ML VIAL ONE (07:13)
== END 2025-05-04 10:00 | disposition home or self-care (01) ==
LOC: SUR 08:01
PROVIDERS: ATTEND Urology
DX: R97.20 Elevated prostate specific antigen [PSA] (principal); C61 Malignant neoplasm of prostate; J44.9 Chronic obstructive pulmonary disease, unspecified; N18.9 Chronic kidney disease, unspecified; F17.210 Nicotine dependence, cigarettes, uncomplicated; F32.A Depression, unspecified; F41.9 Anxiety disorder, unspecified; Z88.0 Allergy status to penicillin; Z90.89 Acquired absence of other organs; Z88.1 Allergy status to other antibiotic agents; Z98.890 Other specified postprocedural states; Z79.899 Other long term (current) drug therapy
CPT/HCPCS: 36415; 55700; 76872; 80053; 81001; 85025; 85610; 85730; 87086; 88305; 88341; 88342; J0744; J1100; J2250; J2270; J2590; J2704; J3010